=== PATIENT | male | born 1955 | race African-American/Black ===

== ENCOUNTER → 2017-12-04 | Outpatient (CLI) | payer OTHER | END | disposition home or self-care (01) | LOC: KCIC 11:29 | DX: M47.896 Other spondylosis, lumbar region (principal); M48.061 Spinal stenosis, lumbar region without neurogenic claudication | CPT/HCPCS: 72110 ==

== ENCOUNTER → 2018-02-05 | Outpatient (CLI) | payer OTHER | END | disposition home or self-care (01) | LOC: US 12:31 | DX: I65.22 Occlusion and stenosis of left carotid artery (principal) | CPT/HCPCS: 93926 ==

== ENCOUNTER → 2019-05-30 | Outpatient (CLI) | payer MEDICARE, OTHER ==
[2016-02-22 09:15] VITALS: BP 176/71
[~2019-05-30] MED LIST: AMLO5TAB10 PO; ASPI325T8 PO; CARV12.511 PO; CRESTOR20 MG PO; LISI-130 PO; TAMS0.4C2 PO
--- NOTE | 2019-05-30 17:13 | KCIC ---
EXAM: Left elbow, 3 views. HISTORY: Olecranon bursitis. COMPARISON: None. FINDINGS: 3 views of the left elbow are obtained. There is no fracture, dislocation or subluxation. There is mild cortical regularity along the radial head likely due to a spur. There is also spurring along the trochlea. There is soft tissue swelling overlying the olecranon. There is no joint effusion. IMPRESSION: 1. Soft tissue swelling overlying the olecranon, consistent with reported olecranon bursitis. 2. Mild left elbow osteoarthritis. Electronically signed by: Deepika Dill MD (05/30/2019 5:10 PM) [place] [id number]
== END | disposition home or self-care (01) ==
LOC: KCIC 10:08
PROVIDERS: ATTEND Family Medicine
DX: M19.022 Primary osteoarthritis, left elbow (principal); M70.22 Olecranon bursitis, left elbow; M79.89 Other specified soft tissue disorders
CPT/HCPCS: 73080

== ENCOUNTER → 2021-05-16 | Outpatient (CLI) | payer MEDICARE ==
[2016-02-22 09:15] VITALS: BP 176/71
[~2021-05-16] MED LIST changes: +AMLO-186 PO; -AMLO5TAB10 PO
--- NOTE | 2021-05-16 17:06 | KCIC ---
EXAM: XR LUMBAR SPINE 4+V, XR HIP (WITH OR WITHOUT PELVIS) RIGHT 1 VIEW 05/16/2021 4:12 PM CLINICAL INDICATION: Leg pain. Fell 2 years ago. Left hip and leg pain, left leg heaviness COMPARISON: Lumbar spine radiograph 01/04/2018 TECHNIQUE: 5 views of the lumbar spine. 2 views of the pelvis and left hip FINDINGS: Lumbar spine: There is sacralization of L5. No acute fracture. Slight wedging of L1 appears old. Alig nment is normal. There is mild to moderate disc space narrowing at L4-L5 and L5-S1. Mild disc space n arrowing and small anterior osteophyte at the remaining levels. There is lower lumbar facet arthrosis . There is gaseous distention of bowel. There are calcifications in the abdominal aorta. Left hip: There is no acute fracture. Alignment is normal. Mild bilateral hip joint space narrowing. Pubic symphysis and sacral joints are normal. There are vascular calcifications in the thighs. IMPRESSION: 1. Multilevel degenerative disc disease, mild to moderate at L4-5 and L5-S1. 2. Mild degenerative joint disease of the hips. Electronically signed by: Pennie Ho MD (05/16/2021 5:04 PM) [id number]
== END ==
LOC: KCIC 16:08
PROVIDERS: ATTEND Family Medicine
DX: M51.37 Other intervertebral disc degeneration, lumbosacral region (principal); M25.852 Other specified joint disorders, left hip; M25.851 Other specified joint disorders, right hip; M43.27 Fusion of spine, lumbosacral region; M48.07 Spinal stenosis, lumbosacral region; M25.78 Osteophyte, vertebrae; I70.0 Atherosclerosis of aorta; M25.552 Pain in left hip; M54.5 Low back pain
CPT/HCPCS: 72110; 73501

== ENCOUNTER → 2021-11-11 | Outpatient (CLI) | payer MEDICARE ==
[2016-02-22 09:15] VITALS: BP 176/71
--- NOTE | 2021-11-11 13:07 | RAD ---
MRI of the lumbar spine without contrast 11/11/2021 CLINICAL HISTORY: Neurogenic claudication. TECHNIQUE: Unenhanced T1-weighted and T2-weighted sagittal and axial and inversion recovery sagittal images of the lumbar spine were obtained. FINDINGS: Comparison is made to radiographs of the lumbar spine dated 05/16/2021. Minimal S-shaped curvature of the thoracolumbar spine is seen. Degenerative signal changes and loss o f height are seen involving all of the disks of the lumbar spine. Degenerative signal changes are see n within the marrow surrounding these discs. The conus medullaris is normal morphology, position, and signal characteristics. At the L1-2 disc space there is a mild generalized disc bulge. Degenerative changes are seen involvin g the facet joints bilaterally. There are small facet joint effusions bilaterally. There is mild liga mentum flavum hypertrophy bilaterally. There is prominence of the posterior epidural fat. These findi ngs when combined result in mild central spinal canal stenosis. No neural foraminal stenosis is seen. At the L2-3 disc space there is a mild to moderate generalized disc bulge. Superimposed on this disc bulge is a right paracentral/lateral focal disc protrusion. This measures 4 mm in AP diameter. Degene rative changes are seen involving the facet joints bilaterally. There is mild ligamentum flavum hyper trophy bilaterally. There are small facet joint effusions bilaterally. These findings when combined r esult in mild central spinal canal stenosis. No neural foraminal stenosis is seen. At the L3-4 disc space there is a mild to moderate generalized disc bulge. Degenerative changes are s een involving the facet joints bilaterally. There is mild to moderate ligament flavum hypertrophy tracey aterally. These findings when results in mild central spinal canal stenosis. No neural foraminal sten osis is seen. At the L4-5 disc space there is a mild to moderate generalized disc bulge. Superimposed on this disc bulge is a left paracentral focal disc herniation. This extrudes inferiorly. The extruded disc fragme nt measures 1.3 x 1.0 x 0.8 cm in transverse, craniocaudal and AP dimensions. Degenerative changes ar e seen involving the facet joints bilaterally. There is moderate ligamentum flavum hypertrophy bilate rally. These findings when combined result in severe left-sided central spinal canal stenosis. The ex truded disc fragment appears to impinge upon the left L5 nerve root within the left lateral aspect of the central spinal canal. Mild to moderate left neural foraminal stenosis is seen. The right neural foramen is patent. At the L5-S1 disc space there is a mild to moderate generalized disc bulge. This is eccentric to the left. Degenerative changes are seen involving the facet joints bilaterally. These findings when combi solo do not result in significant central spinal canal stenosis. Moderate left neural foraminal stenos is is seen. The right neural foramen is patent. IMPRESSION: The changes of degenerative disc disease are seen throughout the lumbar spine. These find ings result in mild central spinal canal stenosis at L1-2, L2-3 and L3-4. Mild to moderate left neura l foraminal stenosis is seen at L4-5. Moderate left neural foraminal stenosis is seen at L5-S1. At th e L4-5 disc space a left paracentral focal disc herniation is seen which extrudes inferiorly as an ex truded disc fragment. This contributes to severe left-sided central spinal canal stenosis and appears to impinge upon the left L5 nerve root within the left aspect of the central spinal canal. Electronically signed by: Bharath Saravia MD (11/11/2021 1:04 PM) [id number]
== END ==
LOC: MRI 10:24
PROVIDERS: ATTEND Family Medicine
DX: G95.19 Other vascular myelopathies (principal); M51.36 Other intervertebral disc degeneration, lumbar region; M51.27 Other intervertebral disc displacement, lumbosacral region; M48.07 Spinal stenosis, lumbosacral region; M47.817 Spondylosis without myelopathy or radiculopathy, lumbosacral region; M41.85 Other forms of scoliosis, thoracolumbar region
CPT/HCPCS: 72148